=== PATIENT | female | born 1985 | race Caucasian/White ===

== ENCOUNTER 2016-12-20 09:28 | Outpatient (CLI) | payer OTHER ==
[~2016-12-20] VITALS: Ht 177.8 cm; Wt 98.6 kg
[2016-12-20 09:35] VITALS: BP 126/86
[2016-12-20 11:57] LABS: ASPARTATE AMINO TRANSFERASE 16 U/L (15-37); BLOOD UREA NITROGEN 7 mg/dL (7-18)
== END 2016-12-20 13:30 | disposition home or self-care (01) ==
LOC: LDOP 09:28
PROVIDERS: ATTEND Obstetrics & Gynecology
DX: O14.93 Unspecified pre-eclampsia, third trimester (principal); O24.013 Pre-existing type 1 diabetes mellitus, in pregnancy, third trimester; E10.8 Type 1 diabetes mellitus with unspecified complications; Z3A.37 37 weeks gestation of pregnancy
CPT/HCPCS: 36415; 59025; 80053; 81001; 82570; 84156; 84550; 85025; 99211; G0463

== ENCOUNTER 2016-12-23 10:37 | Outpatient (CLI) | payer OTHER ==
[~2016-12-23] VITALS: Ht 177.8 cm; Wt 99.1 kg
[2016-12-23 10:46] VITALS: BP 127/85
[2016-12-23 11:58] LABS: ASPARTATE AMINO TRANSFERASE 15 U/L (15-37); BLOOD UREA NITROGEN 5 mg/dL (7-18)
[2016-12-30] MEDS ORDERED: METF100010 PO (15:57)
[2016-12-30] MEDS ORDERED: PREN1TAB25 PO (15:58)
[2016-12-30] MEDS ORDERED: CHOL200026 PO (15:58)
[2016-12-30] MEDS ORDERED: CALC200T3 PO (15:59)
[2016-12-30] MEDS ORDERED: DOCU-30 PO (15:59)
[2016-12-30] MEDS ORDERED: CETI-237 PO (16:00)
== END 2016-12-23 13:50 | disposition home or self-care (01) ==
LOC: LDOP 10:37
PROVIDERS: ATTEND Obstetrics & Gynecology
DX: O36.8130 Decreased fetal movements, third trimester, not applicable or unspecified (principal); O13.3 Gestational [pregnancy-induced] hypertension without significant proteinuria, third trimester; O24.013 Pre-existing type 1 diabetes mellitus, in pregnancy, third trimester; E10.8 Type 1 diabetes mellitus with unspecified complications; Z3A.38 38 weeks gestation of pregnancy
CPT/HCPCS: 36415; 59025; 76815; 80053; 81003; 82248; 82570; 84156; 84550; 85025; 99211; G0463